=== PATIENT | female | born 1980 | race Caucasian/White ===

== ENCOUNTER → 2016-08-31 04:31 | Emergency (ER) | payer OTHER | END | disposition left against medical advice (07) | LOC: CED 04:31 | DX: Z53.21 Procedure and treatment not carried out due to patient leaving prior to being seen by health care provider (principal) ==

== ENCOUNTER 2016-08-31 06:41 | Emergency (ER) | payer OTHER | END 2016-08-31 07:45 | disposition home or self-care (01) | LOC: CED 06:41 | DX: L02.414 Cutaneous abscess of left upper limb (principal); J45.909 Unspecified asthma, uncomplicated; F17.210 Nicotine dependence, cigarettes, uncomplicated; Z90.49 Acquired absence of other specified parts of digestive tract | CPT/HCPCS: 10060; 87070; 87077; 87186; 87205; 99283 ==

== ENCOUNTER 2016-10-26 21:37 | Emergency (ER) | payer OTHER | END 2016-10-26 22:35 | disposition home or self-care (01) | LOC: CED 21:37 | DX: Z53.21 Procedure and treatment not carried out due to patient leaving prior to being seen by health care provider (principal) ==